=== PATIENT | female | born 1960 | race American Indian/Alaskan Native ===

== ENCOUNTER 2017-09-10 12:30 | Emergency (ER) | payer MEDICARE, OTHER ==
[2017-09-10 12:44] VITALS: BP 159/66
[2017-09-10] MEDS ORDERED: Lidocaine 2% Viscous Solution 15 ML Cup PO ONE (12:51)
--- NOTE | 2017-09-10 12:59 | EDM.PDOC ---
ED HPI GENERAL MEDICAL PROBLEM - General Chief Complaint: ENT Problem Stated Complaint: TOOTH IS BROKEN, [id number] Time Seen by Provider: 09/10/17 12:45 Source of Information: Reports: Patient History Limitations: Reports: No Limitations - History of Present Illness INITIAL COMMENTS - FREE TEXT/NARRATIVE: This 57 yo female patient reports to the ED with increased pain in her left upper posterior mouth. The patient reports she was flossing her teeth on Wednesday of this week when she broke part of her tooth off. The patient reports she started to have increased pain today. The patient reports she attempted to get into the dentist, but the dental office was closed for a . The patient has been taking Tylenol and using Ambasol with little to no symptom relief. Onset Date: 09/06/17 Duration: Constant, Getting Worse Location: Reports: Face (mouth) Quality: Reports: Ache, Dull Severity: Moderate Improves with: Reports: None Worsens with: Reports: None Associated Symptoms: Reports: Other (sinus drainage) Treatments [employer] ATTENDANT: Reports: Acetaminophen, Other Medication(s) Left Upper Tooth/Teeth Pain Score (Numeric/FACES): 10 - Related Data Allergies Allergy/AdvReac Type Severity Reaction Status Date / Time codeine Allergy Nausea Verified 09/10/17 12:38 Home Meds: Home Meds Aspirin [Celso Chewable Aspirin] 81 mg PO BEDTIME 01/02/15 [History] ClonazePAM [KlonoPIN] 0.5 mg PO BID 01/02/15 [History] DULoxetine [Cymbalta] 90 mg PO BEDTIME 01/02/15 [History] Insulin Aspart [Novolog Flexpen] 2 units SQ TID 01/02/15 [History] Insulin Glarg,Human.Rec.Analog [Lantus] 27 units SQ BEDTIME 01/02/15 [History] Lisinopril [Prinivil] 20 mg PO BID 01/02/15 [History] Warfarin [Coumadin] 5 mg PO BEDTIME 01/02/15 [History] Clopidogrel Bisulfate [Clopidogrel] 75 mg PO DAILY 10/31/16 [History] metFORMIN HCl [Metformin HCl] 1,000 mg PO BID 10/31/16 [History] Past Medical History Cardiovascular History: Reports: Hypertension Musculoskeletal History: Reports: Arthritis, Fibromyalgia Neurological History: Reports: CVA, Neuropathy, Diabetic Psychiatric History: Reports: Anxiety, Depression, PTSD Endocrine/Metabolic History: Reports: Diabetes, Type II - Infectious Disease History Infectious Disease History: Reports: None - Past Surgical History GI Surgical History: Reports: Appendectomy, Cholecystectomy Social & Family History - Tobacco Use Smoking Status *Q: Current Every Day Smoker Years of Tobacco use: 40 Packs/Tins Daily: 1 Second Hand Smoke Exposure: No - Caffeine Use Caffeine Use: Reports: Coffee, Soda, Tea - Alcohol Use Days Per Week of Alcohol Use: 0 - Recreational Drug Use Recreational Drug Use: No ED ROS ENT - Review of Systems Review Of Systems: ROS reveals no pertinent complaints other than HPI. ED EXAM, ENT - Physical Exam Exam: See Below Exam Limited By: No Limitations General Appearance: Alert, WD/WN, No Apparent Distress Eye Exam: Bilateral Eye: EOMI, Normal Inspection, PERRL Ears: Normal External Exam, Normal Canal, Hearing Grossly Normal, Normal TMs Nose: Normal Inspection, Normal Mucousa, No Blood Mouth/Throat: Dental Pain, Dental Tenderness, Gum Swelling, Other (generalized dental decay) Head: Atraumatic, Normocephalic Neck: Normal Inspection, Supple, Non-Tender, Full Range of Motion Respiratory/Chest: No Respiratory Distress, Lungs Clear, Normal Breath Sounds, No Accessory Muscle Use, Chest Non-Tender Cardiovascular: Normal Peripheral Pulses, Regular Rate, Rhythm, No Edema, No Gallop, No JVD, No Murmur, No Rub GI/Abdominal: Normal Bowel Sounds, Soft, Non-Tender, No Organomegaly, No Distention, No Abnormal Bruit, No Mass (Female) Exam: Deferred Rectal (Female) Exam: Deferred Back: Normal Inspection, Full Range of Motion Extremities: Normal Inspection, Normal Range of Motion, Non-Tender, No Pedal Edema, Normal Capillary Refill Neurological: Alert, Oriented, CN II-XII Intact, Normal Cognition, Normal Gait, Normal Reflexes, No Motor/Sensory Deficits Psychiatric: Normal Affect, Normal Mood Skin: Warm, Dry, Intact, Normal Color, No Rash Lymphatic: No Adenopathy Course - Vital Signs Last Recorded V/S: Last Vital Signs Temp 36.5 C 09/10/17 12:41 Pulse 90 09/10/17 12:41 Resp 16 09/10/17 12:41 BP 159/66 H 09/10/17 12:41 Pulse Ox 100 09/10/17 12:41 - Orders/Labs/Meds Orders: Active Orders 24 hr Category Date Time Status Lidocaine 2% [Xylocaine 2% Viscous] Med 09/10/17 12:51 Once 15 ml PO ONETIME ONE Departure - Departure Time of Disposition: 12:56 Disposition: Home, Self-Care 01 Condition: Fair Clinical Impression: Fracture of tooth, Dental caries, Dental abscess - Discharge Information Instructions: Dental Abscess, [id number], Dental Caries, [id number] Care Plan Goals: The patient was advised of the examination results during the visit. The patient was given a dose of Viscous Lidocaine 2% applied to a cotton swab over the area while in the ED. The patient was discharged with a script for Clindamycin (300 mg) to take 1 by mouth 4 times per day for 10 days and Viscous Lidocaine 2% #100 mL to apply 5 mL to a cotton swab over the area every 6 hours as needed for pain. The patient should follow-up with a dentist for continued evaluation and further care. If the patient has any additional symptoms or concerns, the patient should visit her primary care provider, her dentist or return to the ED. - My Orders Last 24 Hours: My Active Orders 09/10/17 12:51 Lidocaine 2% [Xylocaine 2% Viscous] 15 ml PO ONETIME ONE - Assessment/Plan Last 24 Hours: My Active Orders 09/10/17 12:51 Lidocaine 2% [Xylocaine 2% Viscous] 15 ml PO ONETIME ONE
== END 2017-09-10 13:15 | disposition home or self-care (01) ==
LOC: DL.ED 12:30
DX: K04.7 Periapical abscess without sinus (principal); K02.9 Dental caries, unspecified; K03.81 Cracked tooth; I10 Essential (primary) hypertension; E11.9 Type 2 diabetes mellitus without complications; F32.9 Major depressive disorder, single episode, unspecified; F17.210 Nicotine dependence, cigarettes, uncomplicated; Z79.4 Long term (current) use of insulin; Z79.82 Long term (current) use of aspirin; Z79.02 Long term (current) use of antithrombotics/antiplatelets; Z79.01 Long term (current) use of anticoagulants; Z88.5 Allergy status to narcotic agent
CPT/HCPCS: 96372; 99282; A9270; 99283

== ENCOUNTER 2017-10-31 09:47 | Emergency (ER) | payer MEDICARE, OTHER ==
[2017-10-31 09:55] VITALS: BP 167/76
[2017-10-31] MEDS ORDERED: Sodium Chloride 0.9% 10 ML Syringe FLUSH PRN (10:11)
[2017-10-31] MEDS ORDERED: Sodium Chloride 0.9% 1,000 ML IV ONE (10:13)
[2017-10-31] MEDS ORDERED: diphenhydrAMINE 50 MG/ML SDV IVPUSH ONE (10:13)
--- NOTE | 2017-10-31 10:20 | EDM.PDOC ---
ED HPI GENERAL MEDICAL PROBLEM - General Chief Complaint: Gastrointestinal Problem Stated Complaint: [id number] SICK Time Seen by Provider: 10/31/17 10:05 Source of Information: Reports: Patient History Limitations: Reports: No Limitations - History of Present Illness INITIAL COMMENTS - FREE TEXT/NARRATIVE: Patient comes emergency department today from home with complaints of nausea vomiting and diarrhea. She felt rather rundown and achy generalized yesterday. This morning she woke up and has a lot of abdominal cramping and has had multiple bouts of diarrhea as well as vomiting. She denies any fevers but does feel chilled at times. Her blood sugars been quite elevated in the 500s. She does complain of some shortness of breath and difficulty breathing. She denies any pain in her chest. She denies any cough or congestion. She did not get her influenza vaccine this year. She does have generalized abdominal cramping. No flank pain. No hematuria dysuria or urinary frequency. She has not been on any antibiotics recently nor has she been traveling recently. She has had her gallbladder and her appendix removed in the past. Headache Pain Score (Numeric/FACES): 6 - Related Data Allergies Allergy/AdvReac Type Severity Reaction Status Date / Time codeine Allergy Nausea Verified 09/10/17 12:38 Home Meds: Home Meds ClonazePAM [KlonoPIN] 0.5 mg PO BID 01/02/15 [History] DULoxetine [Cymbalta] 90 mg PO BEDTIME 01/02/15 [History] Insulin Aspart [Novolog Flexpen] 10 units SQ TID 01/02/15 [History] Insulin Glarg,Human.Rec.Analog [Lantus] 50 units SQ BEDTIME 01/02/15 [History] Lisinopril [Prinivil] 40 mg PO BID 01/02/15 [History] metFORMIN HCl [Metformin HCl] 1,000 mg PO BID 10/31/16 [History] ARIPiprazole [Abilify] 1 tab PO DAILY 10/31/17 [History] Aspirin [Ecotrin] 1 tab PO DAILY 10/31/17 [History] Pioglitazone HCl 1 tab PO DAILY 10/31/17 [History] Saxagliptin HCl [Onglyza] 1 tab PO DAILY 10/31/17 [History] Past Medical History Cardiovascular History: Reports: Hypertension Musculoskeletal History: Reports: Arthritis, Fibromyalgia Neurological History: Reports: CVA, Neuropathy, Diabetic Psychiatric History: Reports: Anxiety, Depression, PTSD Endocrine/Metabolic History: Reports: Diabetes, Type II - Infectious Disease History Infectious Disease History: Reports: None - Past Surgical History GI Surgical History: Reports: Appendectomy, Cholecystectomy Social & Family History - Tobacco Use Smoking Status *Q: Current Every Day Smoker Years of Tobacco use: 40 Packs/Tins Daily: 1 Second Hand Smoke Exposure: No - Caffeine Use Caffeine Use: Reports: Coffee, Soda, Tea - Alcohol Use Days Per Week of Alcohol Use: 0 - Recreational Drug Use Recreational Drug Use: No ED ROS GENERAL - Review of Systems Review Of Systems: ROS reveals no pertinent complaints other than HPI. ED EXAM, GI/ABD - Physical Exam Exam: See Below Text/Narrative:: The patient appears quite fatigued. Exam Limited By: No Limitations General Appearance: Alert, WD/WN Eyes: Bilateral: EOMI Ears: Normal External Exam, Normal Canal Nose: Normal Inspection, Normal Mucosa, No Blood Throat/Mouth: Normal Inspection (Other than mucous membranes are mildly dry.), Normal Teeth, Normal Gums Head: Atraumatic, Normocephalic Neck: Normal Inspection, Supple, Non-Tender, Full Range of Motion Respiratory/Chest: No Respiratory Distress, Lungs Clear, Normal Breath Sounds, No Accessory Muscle Use, Chest Non-Tender Cardiovascular: Normal Peripheral Pulses, Regular Rate, Rhythm, No Edema, No Gallop, No Murmur, No Rub GI/Abdominal Exam: Soft, No Organomegaly, No Distention, No Abnormal Bruit, Tender (Generalized mild tenderness throughout the abdomen. No guarding or rebound tenderness.) (Female) Exam: Deferred Rectal (Female) Exam: Deferred Back Exam: Normal Inspection. No: CVA Tenderness (L), CVA Tenderness (R) Extremities: Normal Inspection, Normal Range of Motion, Non-Tender, Normal Capillary Refill Neurological: Alert, Oriented, CN II-XII Intact Psychiatric: Normal Affect, Normal Mood Skin Exam: Dry, Intact, No Rash, Increased Warmth EKG INTERPRETATION EKG Date: 10/31/17 Time: 10:16 Rhythm: NSR Rate (Beats/Min): 58 Viola: Normal P-Wave: Present QRS: Normal ST-T: Normal QT: Normal Course - Vital Signs Last Recorded V/S: Last Vital Signs Temp 35.8 C 10/31/17 09:54 Pulse 88 10/31/17 09:54 Resp 20 10/31/17 09:54 BP 167/76 H 10/31/17 09:54 Pulse Ox 100 10/31/17 09:54 - Orders/Labs/Meds Orders: Active Orders 24 hr Category Date Time Status EKG 12 Lead [EKG Documentation Completion] [RC] URGENT Care 10/31/17 10:11 Active Peripheral IV Care [RC] . DIRECTED Care 10/31/17 10:12 Active Sodium Chloride 0.9% [Saline Flush] Med 10/31/17 10:11 Active 10 ml FLUSH ASDIRECTED PRN Peripheral IV Insertion Adult [OM.PC] Stat Oth 10/31/17 10:11 Ordered Medication Orders Sodium Chloride (Saline Flush) 10 ml FLUSH ASDIRECTED PRN PRN Reason: Keep Vein Open Last Admin: 10/31/17 11:05 Dose: 10 ml Labs: Laboratory Tests 10/31/17 10/31/17 10/31/17 Range/Units 10:11 10:15 10:15 WBC 14.4 H (5.0-10.0) 10^3/uL RBC 4.62 (4.2-5.4) 10^6/uL Hgb 9.6 L (12.0-16.0) g/dL Hct 31.6 L (37.0-47.0) % MCV 68.4 L D (80-100) fL MCH 20.8 L (27.0-34.0) pg MCHC 30.4 L (33.0-35.0) g/dL Plt Count 319 (150-450) 10^3/uL Neut % (Auto) 86.5 H (42.2-75.2) % Lymph % (Auto) 9.5 L (20.5-50.1) % [place] % (Auto) 3.6 (2-8) % Eos % (Auto) 0.3 L (1.0-3.0) % Baso % (Auto) 0.1 (0.0-1.0) % VBG pH 7.49 H (7.31-7.41) VBG pCO2 29 L (41-51) mmHg VBG pO2 103 H (35-42) mmHg VBG HCO3 22 (19-25) mmol/l VBG O2 Saturation 98 H (60-80) % VBG Base Excess -2 ((-2)-(+3)) mmol/l O2 Delivery Device Room air Sodium 135 (135-145) mmol/L Potassium 3.8 (3.6-5.0) mmol/L Chloride 105 (101-111) mmol/L Carbon Dioxide 23.0 (21.0-31.0) mmol/L Anion Gap 10.8 BUN 10 (7-18) mg/dL Creatinine 0.7 (0.6-1.3) mg/dL Est Cr Clr Drug Dosing 66.10 mL/min Estimated GFR (MDRD) > 60 BUN/Creatinine Ratio 14.28 Glucose 237 H (74-105) mg/dL Lactic Acid (0.5-2.2) mmol/L Calcium 8.4 (8.4-10.2) mg/dl Total Bilirubin 0.6 (0.2-1.0) mg/dL AST 17 (10-42) IU/L ALT 11 (10-60) IU/L Alkaline Phosphatase 128 H (42-121) IU/L Troponin I < 0.02 (0.00-0.02) ng/ml Total Protein 7.1 (6.7-8.2) g/dl Albumin 3.4 (3.2-5.5) g/dl Globulin 3.7 Albumin/Globulin Ratio 0.92 Urine Color (YELLOW) Urine Appearance (CLEAR) Urine pH (5.0-9.0) Ur Specific [place] (1.005-1.030) Urine Protein (NEGATIVE) Urine Glucose (UA) (NEGATIVE) Urine Ketones (NEGATIVE) Urine Occult Blood (NEGATIVE) Urine Nitrite (NEGATIVE) Urine Bilirubin (NEGATIVE) Urine Urobilinogen (0.2-1.0) mg/dL Ur Leukocyte Esterase (NEGATIVE) Urine RBC /HPF Urine WBC (0-5/HPF) /HPF Ur Epithelial Cells /HPF Urine Bacteria (0-FEW/HPF) /HPF Urine Mucus /LPF 10/31/17 10/31/17 Range/Units 10:15 10:39 WBC (5.0-10.0) 10^3/uL RBC (4.2-5.4) 10^6/uL Hgb (12.0-16.0) g/dL Hct (37.0-47.0) % MCV (80-100) fL MCH (27.0-34.0) pg MCHC (33.0-35.0) g/dL Plt Count (150-450) 10^3/uL Neut % (Auto) (42.2-75.2) % Lymph % (Auto) (20.5-50.1) % [place] % (Auto) (2-8) % Eos % (Auto) (1.0-3.0) % Baso % (Auto) (0.0-1.0) % VBG pH (7.31-7.41) VBG pCO2 (41-51) mmHg VBG pO2 (35-42) mmHg VBG HCO3 (19-25) mmol/l VBG O2 Saturation (60-80) % VBG Base Excess ((-2)-(+3)) mmol/l O2 Delivery Device Sodium (135-145) mmol/L Potassium (3.6-5.0) mmol/L Chloride (101-111) mmol/L Carbon Dioxide (21.0-31.0) mmol/L Anion Gap BUN (7-18) mg/dL Creatinine (0.6-1.3) mg/dL Est Cr Clr Drug Dosing mL/min Estimated GFR (MDRD) BUN/Creatinine Ratio Glucose (74-105) mg/dL Lactic Acid 1.3 (0.5-2.2) mmol/L Calcium (8.4-10.2) mg/dl Total Bilirubin (0.2-1.0) mg/dL AST (10-42) IU/L ALT (10-60) IU/L Alkaline Phosphatase (42-121) IU/L Troponin I (0.00-0.02) ng/ml Total Protein (6.7-8.2) g/dl Albumin (3.2-5.5) g/dl Globulin Albumin/Globulin Ratio Urine Color Yellow (YELLOW) Urine Appearance Slightly cloudy (CLEAR) Urine pH 6.0 (5.0-9.0) Ur Specific [place] >= 1.030 (1.005-1.030) Urine Protein >=300 H (NEGATIVE) Urine Glucose (UA) 500 H (NEGATIVE) Urine Ketones Trace H (NEGATIVE) Urine Occult Blood Trace-intact H (NEGATIVE) Urine Nitrite Negative (NEGATIVE) Urine Bilirubin Negative (NEGATIVE) Urine Urobilinogen 0.2 (0.2-1.0) mg/dL Ur Leukocyte Esterase Negative (NEGATIVE) Urine RBC 0-5 /HPF Urine WBC 0-5 (0-5/HPF) /HPF Ur Epithelial Cells Moderate H /HPF Urine Bacteria Few (0-FEW/HPF) /HPF Urine Mucus Few H /LPF Microbiology 10/31/17 10:38 Nasal, Left Influenza Type A Antigen Screen - Final NEGATIVE INFLUENZA A VIRUS AG 10/31/17 10:38 Nasal, Left Influenza Type B Antigen Screen - Final NEGATIVE INFLUENZA B VIRUS AG Meds: Medications Generic Name Dose Route Start Last Admin Trade Name Freq PRN Reason Stop Dose Admin Sodium Chloride 10 ml 10/31/17 10:11 10/31/17 11:05 Saline Flush FLUSH 10 ml ASDIRECTED PRN Administration Keep Vein Open Discontinued Medications Generic Name Dose Route Start Last Admin Trade Name Freq PRN Reason Stop Dose Admin Al Hydroxide/Mg Hydroxide 30 ml 10/31/17 11:11 10/31/17 11:16 Gi Cocktail PO 10/31/17 11:12 30 ml ONETIME ONE Administration Diphenhydramine HCl 25 mg 10/31/17 10:13 10/31/17 10:26 Benadryl IVPUSH 10/31/17 10:14 25 mg ONETIME ONE Administration Sodium Chloride 1,000 mls @ 999 mls/hr 10/31/17 10:13 10/31/17 10:26 Normal Saline IV 10/31/17 11:13 999 mls/hr .BOLUS ONE Administration Ketorolac Tromethamine 30 mg 10/31/17 11:11 10/31/17 11:16 Toradol IVPUSH 10/31/17 11:12 30 mg ONETIME ONE Administration Pantoprazole Sodium 40 mg 10/31/17 11:35 10/31/17 11:50 Protonix Iv IVPUSH 10/31/17 11:36 40 mg ONETIME ONE Administration - Radiology Interpretation Free Text/Narrative:: Chest x-ray per radiology. Mild reactive airway disease bronchitis. No lobar pneumonia or signs of heart failure. - Re-Assessments/Exams Free Text/Narrative Re-Assessment/Exam: 10/31/17 11:36 Patient was given IV normal saline 1 L bolus as well as Benadryl with improvement of nausea. Although she continued to have some generalized abdominal pain. Ketorolac 30 mg IV push for headache. GI cocktail with complete resolution of abdominal pain and cramping. Noted that her hemoglobin has been slowly trending down over the past couple months. She does deny any black or tarry stools. She also denies any current menses. Her anemia is in the pattern of iron deficiency anemia. Her stool is negative for occult blood. I am unsure of what causing her anemia at this time although her hemoglobin is stable for discharge. I will treat her for gastritis as well as gastroenteritis she is to follow-up with primary care in the next week for recheck and further evaluation of anemia. She is comfortable with this plan and her questions are answered. 10/31/17 11:43 Departure - Departure Time of Disposition: 11:44 Disposition: Home, Self-Care 01 Condition: Good Clinical Impression: Gastroenteritis Anemia Qualifiers: Anemia type: unspecified type Qualified Code(s): D64.9 - Anemia, unspecified Gastritis Qualifiers: Gastritis type: unspecified gastritis Chronicity: unspecified Gastritis bleeding: without bleeding Qualified Code(s): K29.70 - Gastritis, unspecified, without bleeding - Discharge Information Instructions: Anemia, Nonspecific, Viral Gastroenteritis, Adult, [id number] Forms: ED Department Discharge Additional Instructions: Omeprazole 20 mg twice a day for 2 weeks then once a day. Rx given to patient. [id number] Maalox and/or Mylanta as needed for acute symptoms of epigastric discomfort and burning. Push oral fluids over the next couple of days especially electrolyte containing material such as Gatorade and/or Powerade. Zofran 1 tablet every 6 hours as needed for nausea. Rx given to patient. Return to emergency department if new or worsening symptoms. Follow-up primary care provider in the next week for recheck and evaluation of anemia and possible EGD. - My Orders Last 24 Hours: My Active Orders 10/31/17 10:11 EKG 12 Lead [EKG Documentation Completion] [RC] URGENT Sodium Chloride 0.9% [Saline Flush] 10 ml FLUSH ASDIRECTED PRN Peripheral IV Insertion Adult [OM.PC] Stat 10/31/17 10:12 Peripheral IV Care [RC] . DIRECTED - Assessment/Plan Last 24 Hours: My Active Orders 10/31/17 10:11 EKG 12 Lead [EKG Documentation Completion] [RC] URGENT Sodium Chloride 0.9% [Saline Flush] 10 ml FLUSH ASDIRECTED PRN Peripheral IV Insertion Adult [OM.PC] Stat 10/31/17 10:12 Peripheral IV Care [RC] . DIRECTED Assessment:: gastroenteritis. Gastritis-? PUD with anemia developing and negative hemaoccult. Anemia, microcytic hypochromic could be possibly due to peptic ulcer disease or chronic low-volume blood loss. Plan: Omeprazole 20 mg twice a day for 2 weeks then once a day. Rx given to patient. [id number] Maalox and/or Mylanta as needed for acute symptoms of epigastric discomfort and burning. Push oral fluids over the next couple of days especially electrolyte containing material such as Gatorade and/or Powerade. Zofran 1 tablet every 6 hours as needed for nausea. Rx given to patient. Return to emergency department if new or worsening symptoms. Follow-up primary care provider in the next week for recheck and evaluation of anemia and possible EGD and H Pylori testing.
[2017-10-31 10:23] LABS: O2 DELIVERY DEVICE ROOM AIR
[2017-10-31 10:41] LABS: BICARBONATE,VENOUS 22 mmol/l (19-25); O2 SATURATION VENOUS 98 % (60-80); PCO2 VENOUS 29 mmHg (41-51); PH,VENOUS 7.49 (7.31-7.41); PO2 VENOUS 103 mmHg (35-42)
[2017-10-31 10:42] LABS: BASE EXCESS VENOUS -2 mmol/l ((-2)-(+3))
--- NOTE | 2017-10-31 10:47 | CR ---
Clinical history: 57-year-old female complaining of chest pain and shortness of breath. Interpretation: Coarse accentuation central lung markings with mild peribronchial "cuffing" but... no air trapping or focal lobar pneumonia. Normal cardiac silhouette without cephalization of vascular flow, alveolar edema or dependent pleural effusion. Bella thorax unremarkable. No lung mass or hilar lymphadenopathy. No atelectasis/collapse. No pneumothorax. CONCLUSION: Mild reactive airway disease (bronchitis). No lobar pneumonia or signs of heart failure.
[2017-10-31 10:57] LABS: CHLORIDE,CL 105 mmol/L (101-111); SODIUM,NA 135 mmol/L (135-145)
[2017-10-31] MEDS ORDERED: Ketorolac 30 MG/ML SDV IVPUSH ONE (11:11)
[2017-10-31] MEDS ORDERED: GI Cocktail Oral Solution 30 ML PO ONE (11:11)
[2017-10-31] MEDS ORDERED: Pantoprazole 40 MG Vial IVPUSH ONE (11:35)
--- NOTE | 2017-11-01 13:05 | EKG ---
10/31/2017 - DEVORAH ALMONTE - FINDINGS: This 12-lead EKG shows a normal sinus rhythm with a ventricular rate of 81. Normal axis and intervals. No acute ST-segment or T-wave changes. There are nonspecific T-wave abnormalities in the lateral leads. [facility] /[id number]
== END 2017-10-31 12:17 | disposition home or self-care (01) ==
LOC: DL.ED 09:47
DX: K52.9 Noninfective gastroenteritis and colitis, unspecified (principal); K29.70 Gastritis, unspecified, without bleeding; D64.9 Anemia, unspecified; I10 Essential (primary) hypertension; E11.40 Type 2 diabetes mellitus with diabetic neuropathy, unspecified; F17.210 Nicotine dependence, cigarettes, uncomplicated; Z88.5 Allergy status to narcotic agent; Z79.4 Long term (current) use of insulin
CPT/HCPCS: 36415; 71046; 80053; 81001; 82272; 82803; 83605; 84484; 85025; 87804; 93005; 93010; 96361; 96374; 96375; 99284; A9270; C9113; J1200; J1885; J7030; J7050

== ENCOUNTER 2019-02-02 07:58 | Day surgery (SDC) | payer MEDICARE, OTHER ==
[~2019-02-02 07:58] MED LIST: Lactated Ringers 1,000 ML IV SCH; Sodium Chloride 0.9% 10 ML Syringe FLUSH PRN; ceFAZolin 1 GM in Premix Bag 1 BAG IV SCH
[2019-02-02] MEDS ORDERED: Ketorolac 30 MG/ML SDV IVPUSH ONE (07:59)
[2019-02-02] MEDS ORDERED: Ondansetron 4 MG/2 ML SDV IV ONE (07:59)
[2019-02-02] MEDS ORDERED: Dexamethasone 4 MG/ML SDV IV ONE (07:59)
[2019-02-02] MEDS ORDERED: Midazolam 1 MG/ML 2 ML SDV IV ONE (07:59)
[2019-02-02] MEDS ORDERED: fentaNYL 100 MCG/2 ML SDV IV ONE (07:59)
[2019-02-02] MEDS ORDERED: Bupivacaine 0.5% 30 ML SDV INJECT ONE ×3 (07:59→11:40)
[2019-02-02] MEDS ORDERED: Propofol 200 MG/20 ML SDV IV ONE (07:59)
[2019-02-02] MEDS ORDERED: Lidocaine 1% 30 ML SDV INJECT ONE ×3 (07:59→11:40)
[2019-02-02] MEDS ORDERED: Bupivacaine 0.5% 30 ML SDV ONE (09:32)
[2019-02-02] MEDS ORDERED: Lidocaine 1% 30 ML SDV ONE (09:33)
[2019-02-02] MEDS ORDERED: Acetaminophen/oxyCODONE 325-5 MG Tab PO PRN (12:20)
--- NOTE | 2019-02-02 12:22 | PCM.OPNOTE ---
- General Post-Op/Procedure Note Date of Surgery/Procedure: 02/02/19 Operative Procedure(s): right foot first metatarsal decompression osteotomy/ bunionectomy Pre Op Diagnosis: right foot hallux limitus with bunion Post-Op Diagnosis: kayleen Anesthesia Technique: Local, MAC Primary Surgeon: Galina Bonilla Anesthesia Provider: Ty Kim EBJocelyn in mLs: 5 Complications: none Condition: Good Free Text/Narrative:: Pt tolerated procedure well and was transported to recovery with vascular status intact to right foot. sheryl 3.0 cannulated screw placed. Well padded compression dressing placed.
[2019-02-02 14:11] VITALS: BP 135/60; PULSE 73
--- NOTE | 2019-02-03 14:45 | OR ---
DATE: 02/02/2019 PREOPERATIVE DIAGNOSIS: Right foot hallux limitus with bunion deformity. POSTOPERATIVE DIAGNOSIS: Right foot hallux limitus with bunion deformity. PROCEDURE PERFORMED: Right foot first metatarsal decompression osteotomy/bunionectomy. ANESTHESIA: Local MAC with preoperative local block with 10 mL of 1:1 mixture of 1% lidocaine plain and 0.5% Marcaine plain. TOURNIQUET TIME: 67 minutes, pneumatic ankle tourniquet. ESTIMATED BLOOD LOSS: Minimal. SPECIMEN: None. COMPLICATIONS: None. INDICATIONS: Monik is a 58-year-old female who presents for a surgical consult from [facility] for a painful great toe joint. I have seen her before, last time was about a year ago. At that time, we tried an insert for her a shoe and also Voltaren gel. She reports her foot pain has continued to worsen. The pain is localized to the big toe joint area where there is a large bump. This started several years ago and now there is also pain to the top of that toe joint and a bump forming at the top as well. She states that the pain is present whenever she is standing or walking, localized right to the great toe joint area. X-rays of the right foot revealed mild periarticular spurring of the first metatarsophalangeal joint, a large osteophyte at the dorsal aspect, and there is a bunion deformity, just a mild bunion approximately 9 degrees IM angle. She does have an elevated first ray. No signs of fracture. The patient voiced good understanding of proposed procedure and possible complications and elects to have surgery at this time. DESCRIPTION OF PROCEDURE: The patient was taken to the operating room lying in the supine position. After adequate anesthesia induction as described above, the right foot was prepped and draped in the usual sterile fashion. A pneumatic ankle tourniquet was inflated to 225 mmHg. Attention was then directed to the dorsal aspect of the first metatarsophalangeal joint where an approximately 4 cm linear incision was made. Sharp and blunt dissection was performed down to the level of the joint capsule with care to gently retract all neurovascular structures. An inverted L capsulotomy was made and the capsule was reflected to expose the distal first metatarsal. A small hypertrophic medial eminence was noted at this time and was resected with a sagittal saw. The articular surface was inspected and there was noted to be a defect at the plantar medial aspect, which was drilled with a 0.062 inch K-wire. The remainder of the joint surface appeared healthy except for the very dorsal aspect. This was also resected with sagittal saw. A sagittal saw was then used to make a Iron type osteotomy in order to plantar flex and shorten, as well as reduce the bunion deformity. The capital fragment was transposed laterally approximately 3 mm and also plantarly approximately 3 mm. Temporary fixation was used from the cannulated screw set. Fluoroscopy was used to identify proper fixation and reduction of the deformity as well as proper placement of the capital fragment without too much shortening. A [employer] 3.0 cannulated screw was then placed as fixation and the temporary fixation was removed. The capital fragment was noted to be stable with varus, valgus, and axial forces applied. The medial shelf was removed with a sagittal saw as well as the dorsal aspect of the first metatarsal head and the proximal phalanx in a V-type fashion. The first MTPJ was then noted to be fluid with significant amount of increased range of motion at that joint with simulated weightbearing. The area was then flushed with copious amounts of sterile saline. A medial capsulorrhaphy was performed. Capsular closure was completed with 3-0 Vicryl and skin closure was completed with 4-0 nylon. The hallux was noted to be in a near rectus alignment at this time with good range of motion. The area was then dressed with Xeroform to the incision site, fluffs, Webril, and a compression dressing. She will be placed on weightbearing. The patient tolerated the procedure and anesthesia well and left the operating room for recovery with vital signs stable in good condition with vascular status intact to the right foot as noted by immediate hyperemia to all digits upon deflation of the ankle tourniquet. The patient was then discharged home when she met hospital discharge requirements. [facility] /[id number]
== END 2019-02-02 13:15 | disposition home or self-care (01) ==
LOC: DL.SDS 07:58
PROVIDERS: ATTEND Podiatrist
DX: M21.611 Bunion of right foot (principal); M20.5X1 Other deformities of toe(s) (acquired), right foot; M17.0 Bilateral primary osteoarthritis of knee; I10 Essential (primary) hypertension; E11.9 Type 2 diabetes mellitus without complications; E78.2 Mixed hyperlipidemia; F17.210 Nicotine dependence, cigarettes, uncomplicated; F43.10 Post-traumatic stress disorder, unspecified; F41.8 Other specified anxiety disorders; M79.7 Fibromyalgia; E66.9 Obesity, unspecified; Z68.31 Body mass index [BMI] 31.0-31.9, adult; Z88.5 Allergy status to narcotic agent; Z79.4 Long term (current) use of insulin; Z79.899 Other long term (current) drug therapy
CPT/HCPCS: 28296; 93005; C1713; J0690; J1100; J1885; J2001; J2250; J2405; J2704; J3010; J3490; J7120; 01470

== ENCOUNTER 2019-04-12 12:04 | Emergency (ER) | payer OTHER, MEDICARE ==
[2019-04-12 12:16] VITALS: BP 148/70
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
[2019-04-12] MEDS ORDERED: Ketorolac 30 MG/ML SDV IM ONE (12:43)
== END 2019-04-12 13:25 | disposition home or self-care (01) ==
LOC: DL.ED 12:04
DX: S16.1XXA Strain of muscle, fascia and tendon at neck level, initial encounter (principal); I10 Essential (primary) hypertension; F41.9 Anxiety disorder, unspecified; F32.9 Major depressive disorder, single episode, unspecified; E11.9 Type 2 diabetes mellitus without complications; Z79.899 Other long term (current) drug therapy; Z88.5 Allergy status to narcotic agent; Z79.4 Long term (current) use of insulin; V40.9XXA Unspecified car occupant injured in collision with pedestrian or animal in traffic accident, initial encounter
CPT/HCPCS: 72125; 96372; 99283-25; J1885

== ENCOUNTER 2019-08-24 08:28 | Day surgery (SDC) | payer MEDICARE, OTHER ==
[2019-08-24] MEDS ORDERED: fentaNYL 100 MCG/2 ML SDV IV ONE (08:29)
[2019-08-24] MEDS ORDERED: Ketorolac 30 MG/ML SDV IVPUSH ONE (08:29)
[2019-08-24] MEDS ORDERED: Lidocaine 1% 30 ML SDV INJECT ONE (08:29)
[2019-08-24] MEDS ORDERED: Bupivacaine 0.5% 30 ML SDV INJECT ONE (08:29)
[2019-08-24] MEDS ORDERED: Propofol 200 MG/20 ML SDV IV ONE (08:29)
[2019-08-24] MEDS ORDERED: Midazolam 1 MG/ML 2 ML SDV IV ONE (08:29)
[2019-08-24] MEDS ORDERED: Sodium Chloride 0.9% 10 ML Syringe FLUSH PRN (09:00)
[2019-08-24] MEDS: Lactated Ringers 1,000 ML IV SCH (09:10)
[2019-08-24] MEDS: Sodium Chloride 0.9% 10 ML Syringe FLUSH PRN (09:10)
[2019-08-24] MEDS: ceFAZolin 2 GM in Premix Bag 1 BAG IV ONE (09:13)
[2019-08-24] MEDS ORDERED: Lidocaine 1% 30 ML SDV ONE (09:18)
[2019-08-24] MEDS ORDERED: Bupivacaine 0.5% 30 ML SDV ONE (09:18)
[2019-08-24] MEDS: Lidocaine 1% 30 ML SDV INJECT ONE ×2 (09:45→10:20)
[2019-08-24] MEDS: Bupivacaine 0.5% 30 ML SDV INJECT ONE ×2 (09:45→10:20)
[2019-08-24] MEDS ORDERED: Acetaminophen/oxyCODONE 325-5 MG Tab PO PRN (10:27)
--- NOTE | 2019-08-24 10:29 | PCM.OPNOTE ---
- General Post-Op/Procedure Note Date of Surgery/Procedure: 08/24/19 Operative Procedure(s): right foot harware removal Pre Op Diagnosis: right foot painful hardware Post-Op Diagnosis: kayleen Anesthesia Technique: Local, MAC Primary Surgeon: Galina Bonilla Anesthesia Provider: Ty Kim EBJocelyn in mLs: 5 Complications: none Condition: Good Free Text/Narrative:: Pt tolerated procedure well and was transported to recovery with vascular status intact to right foot. Well padded compression dressing applied.
[2019-08-24 12:19] VITALS: BP 135/73; PULSE 60
--- NOTE | 2019-08-24 16:45 | OR ---
DATE: 08/24/2019 PREOPERATIVE DIAGNOSIS: Right foot painful hardware with scar tissue. POSTOPERATIVE DIAGNOSIS: Right foot painful hardware with scar tissue. PROCEDURE PERFORMED: Left foot hardware excision with scar tissue excision. ANESTHESIA: Local MAC with preoperative local block of 10 mL 1:1 mixture of 1% lidocaine plain and 0.5% Marcaine plain. TOURNIQUET TIME: 28 minutes pneumatic ankle tourniquet. ESTIMATED BLOOD LOSS: Minimal. SPECIMENS: None. COMPLICATIONS: None. INDICATIONS: Teri is a 59-year-old female who presents with pain to the dorsal aspect of her surgical site on the right foot. She had a decompression osteotomy/bunionectomy for hallux limitus, this was several months ago. She did have a dehiscence after her bunionectomy, but that has since healed. She still has pain at the very dorsal first metatarsal right at the screw head. No pain to the joint itself or with range of motion, and she does still have some swelling that occurs in that area. The patient voiced good understanding of proposed procedure and possible complications and elects to have surgery at this time. DESCRIPTION OF PROCEDURE: The patient was taken to the operating room lying in supine position. After adequate anesthesia induction as described above, the right foot was prepped and draped in usual sterile fashion. A pneumatic ankle tourniquet was inflated to 225 mmHg. Attention was then directed to the dorsal aspect of the first metatarsophalangeal joint overlying the old incision area. An approximately 4 cm linear incision was made directly over the old incision. Sharp and blunt dissection was performed down to the level of the first metatarsophalangeal joint and a linear capsulotomy was made. The capsule was gently reflected to expose the distal first metatarsal. The screw was easily visualized and was prominent and this was removed without incident. There was noted to be some spurring around the screw area, so that was removed with a rongeur and everything was rasped down to a nice smooth edge. I checked the joint and that appeared healthy without any issues. There was some excessive scar tissue at the medial aspect of the capsule and I did extend out the capsule and removed that scar tissue. The first metatarsophalangeal joint was put through range of motion and had very good range of motion without any limitations and without any crepitus. The area was then irrigated with copious amounts of sterile saline. Deep closure was completed with 3-0 Vicryl and skin closure was completed with 4-0 nylon. The area was dressed with Xeroform to the incision site, fluffs, Webril, and an Gaston wrap. She was placed into a postoperative shoe. She tolerated anesthesia and the procedure well and left the operating room for recovery with vital signs stable and vascular status intact to the right foot as noted by immediate hyperemia upon deflation of the ankle tourniquet. The patient was then discharged home when she met hospital discharge requirements. [facility] /[id number]
== END 2019-08-24 11:40 | disposition home or self-care (01) ==
LOC: DL.SDS 08:28
PROVIDERS: ATTEND Podiatrist
DX: T84.84XA Pain due to internal orthopedic prosthetic devices, implants and grafts, initial encounter (principal); M25.774 Osteophyte, right foot; I10 Essential (primary) hypertension; I25.10 Atherosclerotic heart disease of native coronary artery without angina pectoris; E11.65 Type 2 diabetes mellitus with hyperglycemia; E78.2 Mixed hyperlipidemia; F17.210 Nicotine dependence, cigarettes, uncomplicated; F41.9 Anxiety disorder, unspecified; F32.9 Major depressive disorder, single episode, unspecified; M79.7 Fibromyalgia; M15.0 Primary generalized (osteo)arthritis; Z88.5 Allergy status to narcotic agent; Z79.4 Long term (current) use of insulin; Z79.82 Long term (current) use of aspirin; Z79.899 Other long term (current) drug therapy
CPT/HCPCS: 01470; 20680; 36415; 85027; 93005; J0690; J2001; J3490; J7120

== ENCOUNTER 2021-08-13 10:35 | Day surgery (SDC) | payer MEDICARE, OTHER ==
[~2021-08-13 10:35] MED LIST changes: +Acetaminophen 325 MG Tab PO PRN; +Acetaminophen/Codeine 300-30 MG Tab PO PRN; +Cataract Ophth Solution EYELF ONE; -Lactated Ringers 1,000 ML IV SCH; +Moxifloxacin 0.5% Ophth Soln 3 ML Bottle EYELF ONE; +Ondansetron 4 MG/2 ML SDV IVPUSH PRN; +Phenylephrine 10% Ophth Soln 5 ML Bot EYELF ONE; +Povidone-Iodine 5% Sterile Ophth Soln 30 ML Bottle EYELF ONE; +Proparacaine 0.5% Ophth Soln 15 ML Bottle EYELF ONE; +Timolol Maleate 0.5% Ophth Soln 5 ML Bottle EYELF ONE; +Tropicamide 1% Ophth Soln 15 ML Bottle EYELF ONE; -ceFAZolin 1 GM in Premix Bag 1 BAG IV SCH
[2021-08-13] MEDS ORDERED: Sodium Chloride 0.9% 10 ML Syringe IV ONE (10:36)
[2021-08-13] MEDS ORDERED: Midazolam 1 MG/ML 2 ML SDV IV ONE (10:36)
[2021-08-13] MEDS ORDERED: Dexamethasone 4 MG/ML SDV IV ONE (10:36)
[2021-08-13] MEDS ORDERED: Tetracaine HCl/PF 0.5% 4 ML Bottle EYELF ONE (11:13)
[2021-08-13] MEDS ORDERED: Povidone-Iodine 5% Sterile Ophth Soln 30 ML Bottle EYELF ONE (11:14)
[2021-08-13] MEDS ORDERED: Diclofenac Sodium 0.1% Ophth Soln 5 ML Bottle EYELF ONE (11:14)
[2021-08-13] MEDS ORDERED: Dexamethasone/Neomycin/Polymyxin B Ophth Oint 3.5 GM Tube EYELF ONE (11:14)
[2021-08-13] MEDS ORDERED: Apraclonidine 0.5% Ophth Soln 5 ML Bot EYELF ONE (11:14)
[2021-08-13] MEDS ORDERED: Chondroitin Sulfate/Hyaluronate Sodium Ophth Inj 0.75 ML Syringe EYELF ONE (11:15)
[2021-08-13] MEDS ORDERED: Lidocaine 1% 30 ML SDV ONE (11:15)
[2021-08-13] MEDS ORDERED: Balanced Salt Solution Ophth Irrig 500 ML Bottle IOCULAR ONE (11:15)
[2021-08-13] MEDS ORDERED: Vancomycin 500 MG SDV EYELF ONE (11:16)
[2021-08-13 12:24] VITALS: BP 127/60; PULSE 67
--- NOTE | 2021-08-14 06:57 | OR ---
DATE: 08/13/2021 PREOPERATIVE DIAGNOSIS: Visually significant mixed cataract, left eye. POSTOPERATIVE DIAGNOSIS: Visually significant mixed cataract, left eye. PROCEDURE: Extracapsular cataract extraction with intraocular lens implant, left eye. ANESTHESIA: Topical/local MAC. COMPLICATIONS: None. INDICATION: Ms. Tijerina was seen in the clinic. She is unhappy with her vision noticing a slow progressive change. She saw her regular ferruler, Dr. Cazares. Dr. Cazares was not able to improve her vision and meet her visual needs with a change in glasses. She has difficulty seeing television, books, magazines, newspapers, pill bottles, sewing, difficulty with bright lights and glare. I explained options, offered cataract surgery, and I explained risks including the potential for infection, retinal detachment, loss of vision, need for additional surgery, amongst others. We have discussed implant options. She has requested a mono focal implant. She is comfortable wearing glasses following surgery if necessary. OPERATIVE DESCRIPTION: After informed consent was obtained and the risks, benefits, and alternatives were explained, the patient was brought to the operative suite and topical anesthesia was administered. The patient was then prepped and draped in the sterile fashion and attention was placed on the left eye. A sterile lid speculum was placed into the left eye to allow operative exposure. A full-thickness paracentesis was made in the temporal portion of the operative eye. Preservative-free lidocaine 0.1 mL was injected into the anterior chamber followed by viscoelastic. A full-thickness corneal incision was then made into the anterior chamber. A bent needle cystotome was used to create a small johnny in the anterior capsule. The capsulorrhexis forceps was then used to create a 360-degree curvilinear capsulorrhexis. The nucleus was then removed using a phacoemulsification handpiece and the remaining cortical material was then removed with irrigation and aspiration handpiece. Following removal of the cortical material, the capsular bag was then inspected and noted to be free of any holes or tears. Viscoelastic was then injected into the capsular bag and the intraocular lens was inserted into the capsular bag. The viscoelastic material was then removed from both the anterior and posterior chambers and from behind the IOL. The lens and capsular bag were then reinspected. The IOL was well centered and the capsular bag intact. The wound and paracentesis sites were inspected and hydrated with balanced saline solution. Both were found to be self- sealing. The intraocular pressure was assessed digitally and found to be within normal range. A good red reflex was noted at the completion of the procedure. No complications occurred during the operation. At the completion of the procedure, Maxitrol, Voltaren, and Iopidine drops were placed into the operative eye. A sterile eye shield was placed over the operative eye and the patient was transported to the postoperative recovery area having tolerated the procedure well. Postoperative instructions were given along with a postoperative appointment. The patient was advised to call with any questions or concerns. [facility] /[id number]
== END 2021-08-13 12:25 | disposition home or self-care (01) ==
LOC: DL.SDS 10:35
PROVIDERS: ATTEND Ophthalmology
DX: E11.36 Type 2 diabetes mellitus with diabetic cataract (principal); H26.8 Other specified cataract; I10 Essential (primary) hypertension; E78.5 Hyperlipidemia, unspecified; E66.9 Obesity, unspecified; J45.909 Unspecified asthma, uncomplicated; F41.9 Anxiety disorder, unspecified; Z79.899 Other long term (current) drug therapy; Z88.5 Allergy status to narcotic agent; Z87.891 Personal history of nicotine dependence; Z68.33 Body mass index [BMI] 33.0-33.9, adult
CPT/HCPCS: 00142; 82947; A9270-GY; J1100; J2250; J3370; V2632

== ENCOUNTER 2021-08-20 09:25 | Day surgery (SDC) | payer MEDICARE, OTHER ==
[~2021-08-20 09:25] MED LIST changes: -Cataract Ophth Solution EYELF ONE; +Cataract Ophth Solution EYERT ONE; -Moxifloxacin 0.5% Ophth Soln 3 ML Bottle EYELF ONE; +Moxifloxacin 0.5% Ophth Soln 3 ML Bottle EYERT ONE; -Phenylephrine 10% Ophth Soln 5 ML Bot EYELF ONE; +Phenylephrine 10% Ophth Soln 5 ML Bot EYERT PRN; -Povidone-Iodine 5% Sterile Ophth Soln 30 ML Bottle EYELF ONE; +Povidone-Iodine 5% Sterile Ophth Soln 30 ML Bottle EYERT ONE; -Proparacaine 0.5% Ophth Soln 15 ML Bottle EYELF ONE; +Proparacaine 0.5% Ophth Soln 15 ML Bottle EYERT ONE; +Proparacaine 0.5% Ophth Soln 15 ML Bottle ONE; -Timolol Maleate 0.5% Ophth Soln 5 ML Bottle EYELF ONE; +Timolol Maleate 0.5% Ophth Soln 5 ML Bottle EYERT ONE; +Tobramycin 0.3% Ophth Drops 5 ML Bottle EYERT ONE; -Tropicamide 1% Ophth Soln 15 ML Bottle EYELF ONE; +Tropicamide 1% Ophth Soln 15 ML Bottle EYERT ONE
[2021-08-20] MEDS ORDERED: Sodium Chloride 0.9% 10 ML Syringe IV ONE (09:26)
[2021-08-20] MEDS ORDERED: Dexamethasone 4 MG/ML SDV IV ONE (09:26)
[2021-08-20] MEDS ORDERED: Midazolam 1 MG/ML 2 ML SDV IV ONE (09:26)
[2021-08-20] MEDS ORDERED: Dexamethasone/Neomycin/Polymyxin B Ophth Oint 3.5 GM Tube EYERT ONE (10:02)
[2021-08-20] MEDS ORDERED: Apraclonidine 0.5% Ophth Soln 5 ML Bot EYERT ONE (10:02)
[2021-08-20] MEDS ORDERED: Povidone-Iodine 5% Sterile Ophth Soln 30 ML Bottle EYERT ONE (10:02)
[2021-08-20] MEDS ORDERED: Tetracaine HCl/PF 0.5% 4 ML Bottle EYERT ONE (10:02)
[2021-08-20] MEDS ORDERED: Lidocaine 1% 30 ML SDV ONE (10:03)
[2021-08-20] MEDS ORDERED: Diclofenac Sodium 0.1% Ophth Soln 5 ML Bottle EYERT ONE (10:03)
[2021-08-20] MEDS ORDERED: Balanced Salt Solution Ophth Irrig 500 ML Bottle IOCULAR ONE (10:03)
[2021-08-20] MEDS ORDERED: Vancomycin 500 MG SDV EYERT ONE (10:03)
[2021-08-20] MEDS ORDERED: Chondroitin Sulfate/Hyaluronate Sodium Ophth Inj 0.75 ML Syringe EYERT ONE (10:04)
[2021-08-20 12:35] VITALS: BP 105/53; PULSE 75
--- NOTE | 2021-08-20 18:30 | OR ---
DATE: 08/20/2021 PREOPERATIVE DIAGNOSIS: Visually significant mixed cataract, right eye. POSTOPERATIVE DIAGNOSIS: Visually significant mixed cataract, right eye. PROCEDURE: Extracapsular cataract extraction with intraocular lens implant, right eye. ANESTHESIA: Topical/local MAC. COMPLICATIONS: None. INDICATION: Ms. Tijerina was seen in the clinic with complaints of blurred vision. She has difficulty seeing books, magazines, newspapers, pill bottles; difficulty sewing; difficulty with bright lights and glare. Explained options, offered cataract surgery and I explained risks including the potential for infection, retinal detachment, loss of vision, need for additional surgery, amongst others. We discussed implant options. She has requested a monofocal implant. She is comfortable wearing glasses following surgery if necessary. OPERATIVE DESCRIPTION: After informed consent was obtained and the risks, benefits, and alternatives were explained, the patient was brought to the operative suite and topical anesthesia was administered. The patient was then prepped and draped in the sterile fashion and attention was placed on the right eye. A sterile lid speculum was placed into the right eye to allow operative exposure. A full-thickness paracentesis was made in the temporal portion of the operative eye. Preservative-free lidocaine 0.1 mL was injected into the anterior chamber followed by viscoelastic. A full-thickness corneal incision was then made into the anterior chamber. A bent needle cystotome was used to create a small johnny in the anterior capsule. The capsulorrhexis forceps was then used to create a 360-degree curvilinear capsulorrhexis. The nucleus was then removed using a phacoemulsification handpiece and the remaining cortical material was then removed with irrigation and aspiration handpiece. Following removal of the cortical material, the capsular bag was then inspected and noted to be free of any holes or tears. Viscoelastic was then injected into the capsular bag and the intraocular lens was inserted into the capsular bag. The viscoelastic material was then removed from both the anterior and posterior chambers and from behind the IOL. The lens and capsular bag were then reinspected. The IOL was well centered and the capsular bag intact. The wound and paracentesis sites were inspected and hydrated with balanced saline solution. Both were found to be self- sealing. The intraocular pressure was assessed digitally and found to be within normal range. A good red reflex was noted at the completion of the procedure. No complications occurred during the operation. At the completion of the procedure, Kalyan Santos, and Iopidine drops were placed into the operative eye. A sterile eye shield was placed over the operative eye and the patient was transported to the postoperative recovery area having tolerated the procedure well. Postoperative instructions were given along with a postoperative appointment. The patient was advised to call with any questions or concerns. [facility] /[id number]
== END 2021-08-20 11:10 | disposition home or self-care (01) ==
LOC: DL.SDS 09:25
PROVIDERS: ATTEND Ophthalmology
DX: E11.36 Type 2 diabetes mellitus with diabetic cataract (principal); H26.8 Other specified cataract; E78.5 Hyperlipidemia, unspecified; F17.210 Nicotine dependence, cigarettes, uncomplicated; I10 Essential (primary) hypertension; Z86.73 Personal history of transient ischemic attack (TIA), and cerebral infarction without residual deficits; Z90.49 Acquired absence of other specified parts of digestive tract; Z98.890 Other specified postprocedural states; Z82.49 Family history of ischemic heart disease and other diseases of the circulatory system; Z79.899 Other long term (current) drug therapy; Z88.5 Allergy status to narcotic agent; Z79.4 Long term (current) use of insulin
CPT/HCPCS: 00142; A9270-GY; J1100; J2250; J3370; V2632

== ENCOUNTER 2024-03-23 05:25 | Day surgery (SDC) | payer MEDICARE, OTHER ==
[2024-03-23] MEDS: Dextrose 5%-0.45% NaCl 1,000 ML IV SCH (06:00)
[2024-03-23] MEDS ORDERED: fentaNYL 100 MCG/2 ML SDV ONE (06:11)
[2024-03-23] MEDS ORDERED: Midazolam 1 MG/ML 2 ML SDV ONE (06:11)
[2024-03-23] MEDS: fentaNYL 100 MCG/2 ML SDV IV ONE ×2 (06:30→06:31)
[2024-03-23] MEDS: Midazolam 1 MG/ML 2 ML SDV IV ONE ×2 (06:31→06:32)
[2024-03-23 08:15] VITALS: BP 118/57; PULSE 80
== END 2024-03-23 08:10 | disposition home or self-care (01) ==
LOC: DL.ENDO 05:25
PROVIDERS: ATTEND Internal Medicine Gastroenterology
DX: K29.50 Unspecified chronic gastritis without bleeding (principal); K31.A11 Gastric intestinal metaplasia without dysplasia, involving the antrum; E11.43 Type 2 diabetes mellitus with diabetic autonomic (poly)neuropathy; K31.84 Gastroparesis; I10 Essential (primary) hypertension; E78.5 Hyperlipidemia, unspecified; F32.A Depression, unspecified; F41.1 Generalized anxiety disorder
CPT/HCPCS: 43239; 87077; J2250; J3010; J7042; 88305

== ENCOUNTER 2024-03-31 06:03 | Day surgery (SDC) | payer MEDICARE, OTHER ==
[2024-03-31] MEDS ORDERED: Midazolam 1 MG/ML 2 ML SDV IV ONE (06:04)
[2024-03-31] MEDS ORDERED: fentaNYL 100 MCG/2 ML SDV IV ONE (06:04)
[2024-03-31] MEDS ORDERED: Midazolam 1 MG/ML 2 ML SDV ONE (06:16)
[2024-03-31] MEDS ORDERED: fentaNYL 100 MCG/2 ML SDV ONE (06:17)
[2024-03-31] MEDS: Dextrose 5%-0.45% NaCl 1,000 ML IV SCH (06:45)
[2024-03-31] MEDS: fentaNYL 100 MCG/2 ML SDV IV ONE ×6 (06:54→07:05)
[2024-03-31] MEDS: Midazolam 1 MG/ML 2 ML SDV IV ONE ×6 (06:55→06:59)
[2024-03-31 08:41] VITALS: BP 111/55; PULSE 89
== END 2024-03-31 08:48 | disposition home or self-care (01) ==
LOC: DL.ENDO 06:03
PROVIDERS: ATTEND Internal Medicine Gastroenterology
DX: D50.9 Iron deficiency anemia, unspecified (principal); F41.8 Other specified anxiety disorders; I25.10 Atherosclerotic heart disease of native coronary artery without angina pectoris; E78.5 Hyperlipidemia, unspecified; I10 Essential (primary) hypertension; E11.9 Type 2 diabetes mellitus without complications; E66.09 Other obesity due to excess calories; F17.210 Nicotine dependence, cigarettes, uncomplicated; Z79.4 Long term (current) use of insulin; Z98.890 Other specified postprocedural states; Z90.49 Acquired absence of other specified parts of digestive tract; Z68.33 Body mass index [BMI] 33.0-33.9, adult; Z88.5 Allergy status to narcotic agent
CPT/HCPCS: 45378; J2250; J3010; J7042